=== PATIENT | female | born 1990 | race African-American/Black ===

== ENCOUNTER 2019-07-24 15:19 | Emergency (ER) | payer MEDICAID, SELFPAY ==
[2019-07-24 15:28] VITALS: BP 146/89; PULSE 74; RESP 18; TEMP 36.3; O2SAT 100
--- NOTE | 2019-07-24 15:45 | ED.URI ---
HPI - URI/Sore Throat General Chief Complaint: Upper Respiratory Infection Stated Complaint: sore throat Time Seen by Provider: 07/24/19 15:40 Source: patient and RN notes reviewed Mode of arrival: ambulatory Limitations: no limitations History of Present Illness HPI Narrative: Patient presents today with an intermittent sore throat x1 week with loss of voice twice in the last 2 weeks, intermittent subjective fever and intermittent chills. Reports that when she is feeling feverish she has checked her temperature and it has been negative. Denies cough, congestion, rhinorrhea, nausea or vomiting. She has been drinking hot tea and taking ibuprofen occasionally. She currently rates her pain 6/10. Patient was sent home from work today and was told she needed to come in for evaluation. Patient works at [employer]. MD elicited complaint: sore throat Related Data Home Medications Medication Instructions Recorded Confirmed No Home Medications 07/24/19 07/24/19 Allergies Allergy/AdvReac Type Severity Reaction Status Date / Time No Known Allergies Allergy Verified 07/24/19 15:35 Review of Systems Review of Systems: Narrative: CONSTITUTIONAL: Denies body aches, or sweats.+ Chills, subjective fever EYES: Denies visual changes, redness, or discharge. ENT: Denies rhinorrhea, congestion, or otalgia.+ Sore throat CARDIOVASCULAR: Denies chest pain, palpitations, or edema. RESPIRATORY: Denies cough or dyspnea. GASTROINTESTINAL: Denies abdominal pain, nausea, vomiting, or diarrhea. GENITOURINARY: Denies dysuria or hematuria. SKIN: Denies rash, itching, or wounds. MUSCULOSKELETAL: Denies back pain, joint pain, or myalgia. NEUROLOGIC: Denies headache, numbness, tingling, or weakness. PSYCH: Denies depression or anxiety. PMFSH Comments At time of signature, I have reviewed and agree with nursing past medical, surgical, social and family history unless otherwise noted. Please see nursing chart for further information. There is no relevant family history pertinent to the presenting complaint Exam Narrative: Exam Narrative: GENERAL: Well-appearing, well-nourished, and in no acute distress. HEAD: Normocephalic, atraumatic. EYES: EOMI. No redness or drainage. Conjunctivae normal. ENT: Mucous membranes pink and moist. Nares clear. No rhinorrhea. TMs normal bilaterally. Throat normal. Uvula midline. NECK: Normal AROM. Supple. No lymphadenopathy. CHEST: No respiratory distress. Clear to auscultation. HEART: Regular rate and rhythm. No murmur appreciated. Normal peripheral pulses. EXTREMITIES: Normal range of motion. No edema. SKIN: Warm, dry, no rash. NEURO: No focal deficits. Alert and oriented x3. Gait steady. PSYCH: Normal affect. No signs of depression or anxiety. Course Vital Signs Vital signs: Vital Signs Temperature 97.4 F L 07/24/19 15:28 Pulse Rate 74 07/24/19 15:28 Respiratory Rate 18 07/24/19 15:28 Blood Pressure 146/89 H 07/24/19 15:28 Pulse Oximetry 100 07/24/19 15:28 Temperature 97.4 F L 07/24/19 15:28 Pulse Rate 74 07/24/19 15:28 Respiratory Rate 18 07/24/19 15:28 Blood Pressure 146/89 H 07/24/19 15:28 Pulse Oximetry 100 07/24/19 15:28 Reviewed. Pt has been instructed to follow up with her PCP regarding her elevated blood pressure today. MDM - URI/Sore Throat Differential Diagnosis Differential diagnosis: Likely upper respiratory infection, otitis media, viral infection, pharyngitis and other (Strep throat) Lab Data Attestation: I reviewed the patient's lab results. Labs: Strep Screen Presumptive Negative *(Reference Range: Negative)* Critical Care Time Critical Care Time Critical Care Time: No Discharge Plan Discharge Clinical Impression: Acute sore throat Patient Disposition: Home, Self-Care Condition: Stable Instructions: Pharyngitis (ED) Additional Instructions: Your rapid strep swab was negative today at [facility]
== END 2019-07-24 15:55 | disposition home or self-care (01) ==
PROVIDERS: Emergency Provider Nurse Practitioner
DX: J02.9 Acute pharyngitis, unspecified (principal)
CPT/HCPCS: 87081; 87880; 99213; G0463

== ENCOUNTER 2019-10-09 17:23 | Emergency (ER) | payer BC, SELFPAY ==
[2019-10-09 18:11] VITALS: BP 124/77; PULSE 78; RESP 18; TEMP 36.7; O2SAT 99
--- NOTE | 2019-10-09 18:30 | ED.FEMALEGU ---
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 Stated complaint: VAG BLEEDING Time Seen by Provider: 10/09/19 18:04 Source: patient Mode of arrival: ambulatory Limitations: no limitations History of Present Illness HPI Narrative: Patient is a 29-year-old female who presents to emergency department for evaluation of vaginal discharge noting light blood-tinged discharge patient denies any fever chills nausea vomiting or similar occurrence in the past patient notes she would like to be tested and treated for STDs patient states she does not have a current oil gauger patient on arrival to emergency department notes some mild discomfort and cramping in the suprapubic region. Related Data Home Medications Medication Instructions Recorded Confirmed No Home Medications 07/24/19 07/24/19 Allergies Allergy/AdvReac Type Severity Reaction Status Date / Time No Known Allergies Allergy Verified 10/09/19 18:16 Review of Systems Review of Systems: All systems reviewed & are unremarkable except as noted in HPI and below PMFSH Social History Social History (Updated 10/09/19 @ 18:31 by Benito Sanchez PA-C) Smoking status: Never smoker Gender identity (if verbalized by the patient): Female Exam Narrative: Exam Narrative: GENERAL: Well-appearing, well-nourished, and in no acute distress. HEAD: Normocephalic, atraumatic. EYES: PERRLA and EOMI. ENT: Nares clear, no rhinorrhea or epistaxis. Mucous membranes moist. CHEST: Clear to auscultation. No respiratory distress. No wheezes rales or rhonchi HEART: Regular rate and rhythm. No murmur heard. Normal peripheral pulses. ABDOMEN: Soft, nontender, nondistended FEMALE GENITOURINARY: White blood-tinged discharge in the vaginal vault otherwise unremarkable exam SKIN: Warm, dry, no rash. NEURO: No focal deficits. Alert and oriented x3. Cranial nerves II through XII grossly intact PSYCH: Normal mood and affect. Course Course Emergency Course: Patient in the room afebrile nontoxic-appearing no distress felt appropriate for outpatient reevaluation Vital Signs Vital signs: Vital Signs Temperature 98.1 F 10/09/19 18:11 Pulse Rate 78 10/09/19 18:11 Respiratory Rate 18 10/09/19 18:11 Blood Pressure 124/77 10/09/19 18:11 Pulse Oximetry 99 10/09/19 18:11 Temperature 98.1 F 10/09/19 18:11 Pulse Rate 78 10/09/19 18:11 Respiratory Rate 18 10/09/19 18:11 Blood Pressure 124/77 10/09/19 18:11 Pulse Oximetry 99 10/09/19 18:11 MDM - Female Genitourinary MDM Narrative Medical decision making narrative: Patient in the room at this time aware of case findings treatment plan and diagnosis was tested and treated for STDs as requested no high risk changes in the blood work provided with gynecological follow-up also agreeing to return if symptoms worsen and was provided with reasons to return Lab Data Labs: Lab Results 10/09/19 10/09/19 Range/Units 18:44 19:29 Urine Color Colorless (Yellow) Urine Appearance Clear (Clear) Urine pH 7.0 (5.0-9.0) Ur Specific [place] 1.005 (1.001-1.035) Urine Protein Negative (Negative) mg/dL Urine Glucose (UA) Negative (Negative) mg/dL Urine Ketones Negative (Negative) mg/dL Ur Blood (Man) 2+ H (Negative) Urine Nitrate Negative (Negative) Urine Bilirubin Negative (Negative) Urine Urobilinogen Negative (<2.0) mg/dL Leukocyte Esterase Rfl Negative (Negative) ARSEN/UL Urine WBC 0-3 /hpf Ur Squamous Epith Cells Occasional (Few) /hpf Urine Bacteria Trace /hpf C.trachomatis RNA (TMA) Pending N.gonorrhoeae RNA (TMA) Pending UCG Bedside Result Negative Reference Range: Negative Discharge Plan Discharge Clinical Impression: Abnormal vaginal bleeding Patient Disposition: Home, Self-Care Condition: Stable Instructions: Antibiotic Form, Dysfunctional Uterine Bleeding (ED) Additional Instructions:
[2019-10-09] MEDS: AZITHROMYCIN 250 MG TABLET 1000 MG PO (18:52)
[2019-10-09] MEDS: cefTRIAXone 250 MG VIAL IM (18:53)
[2019-10-09] MEDS: metroNIDAZOLE 250 MG TABLET 2000 MG PO (18:53)
[2019-10-09] MEDS: LIDOCAINE HCL 1% LOCAL INJ 20 ML VIAL (18:54)
[2019-10-09 19:40] LABS: Add Urine Microscopic? YES; Appearance Urine Clear (Clear); Bacteria Urine Trace /hpf; Bilirubin Urine Negative (Negative); Blood Urine 2+ (Negative); Color Urine Colorless (Yellow); Glucose Urine UA Negative (Negative); Ketones Urine Negative (Negative); Leukocyte Esterase Ur Negative LEU/UL (Negative); Nitrate Urine Negative (Negative); Protein Urine Negative (Negative); Specific Grav Ur 1.005 (1.001-1.035); Squamous Epithelial Cell Urine Occasional /hpf (Few); Urobilinogen Urine Negative mg/dL (<2.0); WBC Urine 0-3 /hpf
== END 2019-10-09 19:59 | disposition home or self-care (01) ==
PROVIDERS: Emergency Medicine Emergency Medical Services; Emergency Provider Emergency Medicine
DX: N93.9 Abnormal uterine and vaginal bleeding, unspecified (principal)
CPT/HCPCS: 81001; 81025; 87070; 87491; 87591; 96372; 99284; A9270; J0696

== ENCOUNTER 2019-10-11 07:40 | Emergency (ER) | payer BC, SELFPAY ==
[2019-10-11] VITALS (7 sets, daily range): BP systolic 125–149; BP diastolic 66–97; PULSE 59–85; RESP 14–25; TEMP 36.4; O2SAT 98–100
--- NOTE | ~2019-10-11 | CT_ITS ---
EXAMINATION: CTA chest PE protocol DATE: 10/11/2019 09:29 INDICATION: Shortness of breath. Left-sided chest and back pain. Pain with breathing. TECHNIQUE: Computed tomography (CT) pulmonary angiogram of the chest was performed with 100 mL Omnipa que-350 intravenous contrast. Additional 3D reconstructions utilizing coronal maximum intensity proje ction (MIP) were performed. Automated exposure control and iterative reconstruction technique were em ployed. The dose-length product was 624.09 mGy-cm. COMPARISON: None FINDINGS: Good but suboptimal contrast opacification of the pulmonary arteries with the peak of the contrast pancho miguelangel in the pulmonary veins. There is mild streak artifact from dense contrast in the superior vena ca va and right atrium. No significant respiratory motion artifact yielding diagnostic quality study whi ch demonstrates no pulmonary embolism. No pneumonia, pulmonary edema or other pulmonary infiltrates. No pleural effusion or pneumothorax. Heart size is normal. No pericardial effusion. Thoracic aorta is normal in caliber with no dissection. No pathologically enlarged thoracic lymphadenopathy. Visualize d upper abdomen and bones are unremarkable. IMPRESSION: 1. No pulmonary embolism or other acute cardiopulmonary disease. Reviewed, dictated and finalized at location A.
--- NOTE | ~2019-10-11 | XR_ITS ---
EXAMINATION: XR chest 2V DATE: 10/11/2019 08:35 INDICATION: Shortness of breath. Upper back pain TECHNIQUE: PA and lateral views of the chest were obtained. COMPARISON: None FINDINGS: The lungs are clear with no focal airspace opacities, pulmonary edema, pleural effusion or pneumothor ax. The cardiomediastinal silhouette is normal. Visualized bones and soft tissues are unremarkable. IMPRESSION: 1. Normal chest radiograph. Reviewed, dictated and finalized at location A. IMPRESSION: 1. Normal chest radiograph.
--- NOTE | 2019-10-11 08:05 | ECG_ITS ---
Measurements Intervals [place] Rate: 71 P: 35 MN: 203 QRS: 67 QRSD: 97 T: 46 QT: 388 QTc: 423 Interpretive Statements SINUS RHYTHM BASELINE WANDER- I, II, AVR, V4-V6 BORDERLINE ECG Electronically Signed On 10-11-2019 8:13:27 CDT by Abilio Bar D.O.
[2019-10-11] MEDS: ASPIRIN 81 MG CHEWABLE TABLET 324 MG PO (08:16)
[2019-10-11 08:18] LABS: Basophils Percent Auto 0.3 % (0.2-1.2); Eosinophils Absolute Auto 0.3 K/mm3 (0-0.3); Eosinophils Percent Auto 4.1 % (0-4.4); Hematocrit 35.5 % (37.0-47.0); Hemoglobin 12.1 g/dL (12.0-15.0); Immature Granulocyte Absolute 0.01 K/mm3 (0.00-0.031); Immature Granulocyte Percent A 0.2 % (0-0.5); Lymphocytes Absolute Auto 2.46 K/mm3 (0.9-3.2); Mean Corpuscular HGB Conc 34.1 g/dl (32-36); Mean Corpuscular Hemoglobin 24.6 pg (26-34); Mean Corpuscular Volume 72.3 fl (80-100); Mean Platelet Volume 12.5 fl (7.4-10.4); Monocytes Absolute Auto 0.6 K/mm3 (0.1-0.6); Neutrophils Absolute Auto 3.3 K/mm3 (1.3-6.7); Neutrophils Percent Auto 49.4 % (45.5-73.1); Platelet Count Result 235 k/mm3 (150-375); Red Blood Count 4.91 M/mm3 (4.2-5.4); Red Cell Distribution Width 15.9 % (11.5-14.5); White Blood Count 6.6 K/mm3 (4.5-10.0)
[2019-10-11 08:29] LABS: Prothrombin Time 12.9 Seconds (11.1-14.7)
[2019-10-11 08:30] LABS: Partial Thromboplastin Time 32.6 SECONDS (22.3-36.8)
[2019-10-11 08:32] LABS: Blood Urea Nitrogen 10 mg/dL (7-17); Carbon Dioxide 24 mmol/L (22-30); Chloride 106 mmol/L (98-107); Estimated CRCL calculation 99 ml/min; Estimated Glomerular Filt Rate > 60; Glucose 94 mg/dL (65-105); Potassium 3.8 mmol/L (3.4-5.0); Sodium 137 mmol/L (137-145)
[2019-10-11 08:44] LABS: Troponin I < 0.012 ng/mL (0.000-0.034)
--- NOTE | 2019-10-11 08:55 | ED.GENADULT ---
HPI - General Adult General Chief complaint: Back Pain/Injury Stated complaint: back pain/pain with mvt/breathing Time Seen by Provider: 10/11/19 08:37 History of Present Illness HPI narrative: Patient presents for upper left back pain. Hurts worse if she takes a deep breath, but still hurts at rest. She was here 2 days ago for abnormal uterine bleeding. The bleeding has since improved. She says the pain is 6 out of 10. She has no chronic medical conditions. She does not smoke drink or do drugs. Related Data Allergies Allergy/AdvReac Type Severity Reaction Status Date / Time No Known Allergies Allergy Verified 10/11/19 08:16 Review of Systems Review of Systems: Narrative: CONSTITUTIONAL: Denies fever, chills, or sweats. Overweight, macromastia. EYES: Denies visual changes, redness, or discharge. ENT: Denies rhinorrhea, congestion, sore throat, or otalgia. CARDIOVASCULAR: Denies chest pain, palpitations, or edema. RESPIRATORY: Denies cough or dyspnea. GASTROINTESTINAL: Denies abdominal pain, nausea, vomiting, or diarrhea. GENITOURINARY: Denies dysuria or hematuria. SKIN: Denies rash or itching. MUSCULOSKELETAL: Denies back pain, joint pain, or myalgia. NEUROLOGIC: Denies headache, numbness, or weakness. PSYCHIATRIC: Denies anxiety or depression. [facility] Past Medical History Medical History (Updated 10/11/19 @ 10:11 by Berenice Wooten MD) Dysfunctional uterine bleeding Social History Social History (Updated 10/11/19 @ 08:57 by Berenice Wooten MD) Smoking status: Never smoker Alcohol intake: never Gender identity (if verbalized by the patient): Female Exam Narrative: Exam Narrative: GENERAL: Well-appearing, well-nourished, and in no acute distress. Overweight. Slow to sit up in the bed. HEAD: Normocephalic, atraumatic. EYES: PERRLA and EOMI. ENT: Nares clear, no rhinorrhea or epistaxis. Mucous membranes moist. NECK: Supple. CHEST: Clear to auscultation. No respiratory distress. HEART: Regular rate and rhythm. No murmur heard. Normal peripheral pulses. ABDOMEN: Soft, nontender, nondistended, normal active bowel sounds. EXTREMITIES: Normal range of motion. No edema. SKIN: Warm, dry, no rash. NEURO: No focal deficits. Alert and oriented x3. PSYCH: Flat affect. Course Reevaluation(s) Reevaluation #1: Plan to tell the patient about her normal test on the definition of pleurisy. I told her that I had ordered prescription strength ibuprofen for her. She said she would not be able to work if it hurts her to bend over. I offered her a note to be off work today. Date: 10/11/19 Time: 10:15 Vital Signs Vital signs: Vital Signs Temperature 97.5 F L 10/11/19 07:50 Pulse Rate 82 10/11/19 07:50 Respiratory Rate 16 10/11/19 07:50 Blood Pressure 128/66 10/11/19 07:50 Temperature 97.5 F L 10/11/19 07:50 Pulse Rate 59 L 10/11/19 10:10 Respiratory Rate 14 10/11/19 10:10 Blood Pressure 126/81 10/11/19 10:10 Pulse Oximetry 100 10/11/19 10:10 Medical Decision Making Differential Diagnosis Differential Diagnosis: Although this sounds like his pleurisy she could have a PE will get a CAT scan to rule that out. Medical Records Medical records reviewed: Yes I reviewed the patient's medical records. Vital Signs Vital Signs: Vital Signs Temperature 97.5 F L 10/11/19 07:50 Pulse Rate 82 10/11/19 07:50 Respiratory Rate 16 10/11/19 07:50 Blood Pressure 128/66 10/11/19 07:50 Temperature 97.5 F L 10/11/19 07:50 Pulse Rate 59 L 10/11/19 10:10 Respiratory Rate 14 10/11/19 10:10 Blood Pressure 126/81 10/11/19 10:10 Pulse Oximetry 100 10/11/19 10:10 Lab Data Lab results reviewed: Yes I reviewed the patient's lab results. Result diagrams: 10/11/19 08:11 10/11/19 08:11 Labs: Lab Results 10/11/19 10/11/19 10/11/19 Range/Units 08:10 08:11 08:11 WBC 6.6 (4.5-10.0) K/mm3 RBC 4.91 (4.2-5.4) M/mm3 Hgb 12.1 (12.0-1
[2019-10-11 09:10] LABS: D Dimer 0.61 ug/mL (<0.48)
[2019-10-11] MEDS: IBUPROFEN 600 MG TABLET PO (10:30)
== END 2019-10-11 10:33 | disposition home or self-care (01) ==
PROVIDERS: Emergency Provider Emergency Medicine
DX: R09.1 Pleurisy (principal); R79.89 Other specified abnormal findings of blood chemistry; R94.31 Abnormal electrocardiogram [ECG] [EKG]
CPT/HCPCS: 36415; 71046; 71275; 80048; 81025; 84484; 85025; 85380; 85610; 85730; 93005; 99284; A9270; Q9967

== ENCOUNTER 2020-01-04 12:11 | Outpatient (CLI) | payer OTHER, SELFPAY ==
[2020-01-04 12:39] LABS: Basophils Percent Auto 0.2 % (0.2-1.2); Eosinophils Absolute Auto 0.2 K/mm3 (0-0.3); Hemoglobin 12.4 g/dL (12.0-15.0); Immature Granulocyte Absolute 0.02 K/mm3 (0.00-0.031); Immature Granulocyte Percent A 0.2 % (0-0.5); Immature Reticulocyte Fraction 19.1 % (3.0-15.9); Lymphocytes Absolute Auto 3.48 K/mm3 (0.9-3.2); Lymphocytes Percent Auto 43.3 % (18.3-44.2); Mean Corpuscular HGB Conc 34.4 g/dl (32-36); Mean Corpuscular Hemoglobin 24.4 pg (26-34); Mean Corpuscular Volume 70.7 fl (80-100); Mean Platelet Volume 12.6 fl (7.4-10.4); Monocytes Absolute Auto 0.7 K/mm3 (0.1-0.6); Monocytes Percent Auto 8.3 % (2.6-8.5); Neutrophils Absolute Auto 3.6 K/mm3 (1.3-6.7); Platelet Count Result 267 k/mm3 (150-375); Red Blood Count 5.09 M/mm3 (4.2-5.4); Red Cell Distribution Width 16.4 % (11.5-14.5); Reticulocyte Hemoglobin Conten 31.4 pg (28.2-35.7); Reticulocytes Absolute 0.07 B/L (32.2-175.7)
[2020-01-04 12:51] LABS: Alanine Aminotransferase 18 U/L (4-35); Albumin Level 4.4 g/dL (3.5-5.1); Alkaline Phosphatase 36 U/L (38-126); Anion Gap 7 mmol/L (8-16); Aspartate Amino Transferase 26 U/L (14-36); Bilirubin,Total 0.7 mg/dL (0.2-1.3); Blood Urea Nitrogen 11 mg/dL (7-17); Calcium 9.2 mg/dL (8.4-10.2); Carbon Dioxide 24 mmol/L (22-30); Chloride 106 mmol/L (98-107); Cholesterol 160 mg/dL (0-200); Estimated Glomerular Filt Rate > 60; Glucose 91 mg/dL (65-105); HDL Direct 39 mg/dL; Lactate Dehydrogenase 491 U/L (313-618); Potassium 4.1 mmol/L (3.4-5.0); Sodium 137 mmol/L (137-145); Triglycerides 100 mg/dL (<150)
[2020-01-04 13:02] LABS: LDL Cholesterol Direct 96 mg/dL; Transferrin 318 mg/dL (206-381)
[2020-01-04 13:07] LABS: Creatinine Urine 325.1 mg/dL
[2020-01-04 13:10] LABS: Iron 150 ug/dL (37-170)
[2020-01-04 13:11] LABS: MALB Creatinine Ratio 3.5 mg/g (0-30); Microalbumin Urine Random 11.5 mg/L (0-16.7)
[2020-01-04 13:19] LABS: Percent Iron Saturation 33 % (20-50)
[2020-01-04 13:22] LABS: Total Triiodothyronine (T3) 1.25 NG/ML (0.97-1.69)
[2020-01-04 13:30] LABS: Vitamin D 25 Hydroxy 17.4 ng/mL
[2020-01-04 13:46] LABS: Ferritin 7.38 ng/mL (6.24-137)
[2020-01-04 13:56] LABS: Folic Acid 13.7 ng/mL (2.76->20)
[2020-01-04 22:34] LABS: Free T4 Free Thyroxine 1.12 ng/mL (0.78-2.19)
== END 2020-01-04 12:12 | disposition home or self-care (01) ==
PROVIDERS: PCP Family Medicine; Visit Provider Nurse Practitioner
DX: K21.9 Gastro-esophageal reflux disease without esophagitis (principal); E66.9 Obesity, unspecified; E55.9 Vitamin D deficiency, unspecified; R80.9 Proteinuria, unspecified; Z13.0 Encounter for screening for diseases of the blood and blood-forming organs and certain disorders involving the immune mechanism; Z13.6 Encounter for screening for cardiovascular disorders; Z13.29 Encounter for screening for other suspected endocrine disorder; Z13.220 Encounter for screening for lipoid disorders
CPT/HCPCS: 36415; 80053; 80061; 82043; 82306; 82607; 82728; 82746; 83540; 83550; 83615; 84439; 84443; 84466; 84480; 85025; 85046

== ENCOUNTER 2020-01-22 15:27 | Outpatient (CLI) | payer OTHER, SELFPAY ==
--- NOTE | ~2020-01-22 | US_ITS ---
EXAMINATION: US pelvic complete w TV DATE: 01/22/2020 16:10 INDICATION: Dysmenorrhea Comparison:12/02/2015 TECHNIQUE: Multiple transabdominal and endovaginal sonographic images of the pelvis performed. FINDINGS: The uterus measures 9.4 x 5.8 x 6.2 cm. There are nabothian cysts, largest measure 1.7 cm. The endometrial complex measures 7 mm. The right ovary measures 3 x 2.4 x 2.1 cm and the left ovary is not visualized. There is no free fluid in the pelvis. There are no abnormal masses seen on either side. IMPRESSION: 1. Unremarkable pelvic ultrasound. Reviewed, dictated and finalized at location A.
== END 2020-01-22 15:28 | disposition home or self-care (01) ==
PROVIDERS: PCP Family Medicine; Visit Provider Student in an Organized Health Care Education/Training Program
DX: N94.6 Dysmenorrhea, unspecified (principal)
CPT/HCPCS: 76830; 76856

== ENCOUNTER 2020-06-10 06:38 | Emergency (ER) | payer OTHER, SELFPAY ==
[2020-06-10 06:41] VITALS: BP 145/95; PULSE 99; RESP 18; TEMP 36.1; O2SAT 99
--- NOTE | 2020-06-10 06:55 | PC.NURSE ---
this rn went into room [address] an IV, pt refused at this time.
--- NOTE | 2020-06-10 07:10 | ED.HA ---
HPI - Headache General Chief Complaint: Headache <Orlando Wright DO - Last Filed: 06/10/20 09:55> Stated Complaint: red eye, runny nose <Orlando Wright DO - Last Filed: 06/10/20 09:55> Time Seen by Provider: 06/10/20 07:04 <Orlando Wright DO - Last Filed: 06/10/20 09:55> Source: RN notes reviewed <Orlando Wright DO - Last Filed: 06/10/20 09:55> History of Present Illness HPI Narrative: Patient presents to emergency department from home for headache. Patient states symptoms began 2 days ago. She states that initially began with a runny nose and watering from her right eye. She states her right eye has become mildly red and achy in nature. She states that headache is been ongoing since that time with pain on the right side of the head she denies any fevers or chills vision changes sore throat cough shortness of breath abdominal pain nausea vomiting or any other symptoms. She denies being around anyone with Covid states she took ibuprofen yesterday but denies taking medication today. Denies any other symptoms at this time patient states she does wear glasses occasionally but does not wear contacts denies any trauma or injury to the eye <Orlando Wright DO - Last Filed: 06/10/20 09:55> Related Data Allergies/Adverse Reactions: Allergies Allergy/AdvReac Type Severity Reaction Status Date / Time No Known Allergies Allergy Verified 02/09/20 10:48 <Orlando Wright DO - Last Filed: 06/10/20 09:55> Review of Systems Review of Systems: Narrative: Gen.: Denies fevers or chills Eyes: See HPI ENT: D reports rhinorrhea Respiratory: Denies shortness of breath or cough CV: Denies chest pain or palpitations GI: Denies abdominal pain nausea, emesis or diarrhea denies change Musculoskeletal: Denies back pain or muscle pain Neuro: Denies numbness, tingling, weakness or focal weakness, reports headache Skin: Denies rash Except as documented, all other systems reviewed and negative <DO Morgan Allen Last Filed: 06/10/20 09:55> [facility] Past Medical History Medical History: Medical History ASCUS with positive high risk HPV Dysfunctional uterine bleeding History of chlamydia History of gonorrhea History of herpes simplex infection <Orlando Wright DO - Last Filed: 06/10/20 09:55> Family History Family History: Family History Father Diabetes mellitus Hypertension Grandparent Diabetes mellitus Acute myocardial infarction Mother Hypertension Sibling Hypertension <Orlando Wright DO - Last Filed: 06/10/20 09:55> Social History Social History: Social History Smoking status: Never smoker Alcohol intake: never Gender identity (if verbalized by the patient): Female <Orlando Wright DO - Last Filed: 06/10/20 09:55> Exam Narrative: Exam Narrative: APPEARANCE: No acute distress, nontoxic, resting in bed EYES: EOMI, PERRL, left eye normal appearance of right eye has no swelling of the upper or lower eyelids, mild conjunctival erythema the right eye with clear watering full range of motion of the eye without pain no foreign body seen HEENT: Normocephalic, atraumatic, TMs clear bilaterally, bilateral nares with rhinorrhea mucosa moist RESPIRATORY: No respiratory distress Clear to auscultation bilaterally with no rhonchi wheezing or rales. CARDIOVASCULAR: Regular rate and rhythm without murmurs rubs or gallops. ABDOMINAL: Soft, nontender, nondistended, no rebound or guarding MUSCULOSKELETAl: Moves all extremities. No clubbing, cyanosis or edema. NEURO: Awake and alert. Following commands, speech normal, no focal deficits SKIN:: Warm, dry. No rashes lesions or abrasions PSYCHIATRIC: Normal affect/mood, <Orlando Wright DO - Last Filed: 06/10/20 09:55> Exam Narrative
[2020-06-10] MEDS: IBUPROFEN 600 MG TABLET PO (07:31)
== END 2020-06-10 10:08 | disposition home or self-care (01) ==
PROVIDERS: Emergency Provider Emergency Medicine; PCP Family Medicine
DX: S05.01XA Injury of conjunctiva and corneal abrasion without foreign body, right eye, initial encounter (principal); X58.XXXA Exposure to other specified factors, initial encounter
CPT/HCPCS: 99283; A9270

== ENCOUNTER 2020-10-12 01:24 | Emergency (ER) | payer OTHER, SELFPAY ==
[2020-10-12] VITALS (14 sets, daily range): BP systolic 97–154; BP diastolic 60–104; PULSE 66–91; RESP 16–18; TEMP 36.3; O2SAT 99–100
--- NOTE | ~2020-10-12 | CT_ITS ---
EXAMINATION: CT abdomen pelvis w con EXAM DATE: 10/12/2020 03:57 INDICATION: Epigastric pain. TECHNIQUE: Spiral CT of the abdomen and pelvis was performed following intravenous injection of 100 m L Omnipaque 350. Axial, coronal and sagittal images of the abdomen and pelvis were reviewed. The do se-length product (DLP) for this examination was 1053.12 mGy-cm. The exposure was tailored according to patient size (auto mA exposure control), and iterative reconstruction (ASIR) was used as addition al dose reduction technique. Comparison is made to prior examination from 12/30/2014. FINDINGS: The liver, spleen, adrenal glands and pancreas are unremarkable. Gallbladder is unremarkab le. No biliary obstruction. Portal and splenic veins are patent. Kidneys enhance symmetrically. T here is no hydronephrosis. The uterus is unremarkable. Bladder wall thickening, could be acute or chronic cystitis. There is no retroperitoneal or pelvic lymphadenopathy. Small to moderate-sized umbilical [place] fat containing hernia. The appendix is normal. The stomach and small bowel are unremarkable. There is expected amount of c olonic stool. No free intraperitoneal gas. The heart is normal in size. There are no pericardial or pleural effusions. The lung bases are unremarkable. Left-sided sacroiliitis. IMPRESSION: 1. Bladder wall thickening, could be acute or chronic cystitis, correlate with urinalysis. 2. Chronic left-sided sacroiliitis. 3. Umbilical hernia. Reviewed, dictated and finalized at location A.
--- NOTE | 2020-10-12 01:26 | PC.NURSE ---
ambulatory to ED c/o painful inspiration. also c/o bright red blood in stool. denies cough or other respiratory symptoms, but states that it hurts to take a deep breath in so it's making her FEEL short of breath. able to speak in full sentences. appears uncomfortable.
--- NOTE | 2020-10-12 01:40 | ECG_ITS ---
SINUS RHYTHM NORMAL ECG Electronically Signed On 10-15-2020 11:38:43 CDT by Abilio BASHIR
[2020-10-12] MEDS: SODIUM CHLORIDE 0.9% IV 1,000 ML 999 ML IV CONT (02:35)
[2020-10-12] MEDS: ONDANSETRON INJ 4 MG/2 ML VIAL IV PUSH (02:36)
[2020-10-12] MEDS: MORPHINE SULFATE (*CRX) 4 MG/ML INJ IV PUSH (02:36)
[2020-10-12 02:39] LABS: Basophils Percent Auto 0.2 % (0.2-1.2); Eosinophils Absolute Auto 0.3 K/mm3 (0-0.3); Eosinophils Percent Auto 2.3 % (0-4.4); Hematocrit 35.6 % (37.0-47.0); Hemoglobin 12.1 g/dL (12.0-15.0); Immature Granulocyte Absolute 0.03 K/mm3 (0.00-0.031); Immature Granulocyte Percent A 0.3 % (0-0.5); Lymphocytes Absolute Auto 3.98 K/mm3 (0.9-3.2); Mean Corpuscular Hemoglobin 25.5 pg (26-34); Mean Corpuscular Volume 74.9 fl (80-100); Monocytes Percent Auto 9.1 % (2.6-8.5); Neutrophils Absolute Auto 5.5 K/mm3 (1.3-6.7); Neutrophils Percent Auto 51.1 % (45.5-73.1); Platelet Count Result 232 k/mm3 (150-375); Red Blood Count 4.75 M/mm3 (4.2-5.4); Red Cell Distribution Width 15.6 % (11.5-14.5); White Blood Count 10.8 K/mm3 (4.5-10.0)
[2020-10-12 02:52] LABS: Alanine Aminotransferase 15 U/L (4-35); Albumin Level 4.2 g/dL (3.5-5.1); Alkaline Phosphatase 43 U/L (38-126); Anion Gap 9 mmol/L (8-16); Aspartate Amino Transferase 22 U/L (14-36); Bilirubin,Total 0.2 mg/dL (0.2-1.3); Blood Urea Nitrogen 9 mg/dL (7-17); Calcium 9.7 mg/dL (8.4-10.2); Carbon Dioxide 25 mmol/L (22-30); Chloride 107 mmol/L (98-107); Estimated CRCL calculation 113 ml/min; Estimated Glomerular Filt Rate > 60; Glucose 90 mg/dL (65-105); Lipase 72 U/L (23-300); Potassium 4.2 mmol/L (3.4-5.0); Sodium 141 mmol/L (137-145)
[2020-10-12 03:32] LABS: Lactic Acid Reflex 0.9 mmol/L (0.7-2.1)
--- NOTE | 2020-10-12 03:46 | PC.NURSE ---
Pt to CT via stretcher after negative preg test and urine sent.
[2020-10-12 03:51] LABS: Add Urine Microscopic? YES; Appearance Urine Cloudy (Clear); Bacteria Urine 1+ /hpf; Bilirubin Urine Negative (Negative); Blood Urine Negative (Negative); Color Urine Yellow (Yellow); Glucose Urine UA Negative (Negative); Ketones Urine Negative (Negative); Leukocyte Esterase Ur Trace LEU/UL (Negative); Mucus Urine Rare /lpf; Nitrate Urine Negative (Negative); Protein Urine Negative (Negative); RBC Urine 0-2 /hpf (0-2); Squamous Epithelial Cell Urine Many /hpf (Few); Urobilinogen Urine Negative mg/dL (<2.0); WBC Urine 0-3 /hpf
--- NOTE | 2020-10-12 03:57 | ED.GENADULT ---
HPI - General Adult General Chief complaint: Shortness of Breath/Dyspnea Stated complaint: shortness of breath Time Seen by Provider: 10/12/20 02:12 History of Present Illness HPI narrative: Patient is a 30-year-old female presents emergency department with chief complaint of epigastric pain. Patient states the pain started in the epigastric region and radiates to her back patient also reports that she had some blood in her stool earlier today states it was mixed in with the stool denies diarrhea denies blood on the toilet paper. Patient states that she ate a hot pocket and on legible today reports has had no prior abdominal surgeries reports that she has noticed that her upper abdomen is a little bit more distended than normal. Related Data Allergies Allergy/AdvReac Type Severity Reaction Status Date / Time No Known Allergies Allergy Verified 10/12/20 01:37 Review of Systems Review of Systems: Narrative: A 10 system review of systems was completed on the patient and is negative except for what is stated in the HPI. Nursing and ancillary documentation was reviewed. PMFSH Past Medical History Medical History ASCUS with positive high risk HPV Dysfunctional uterine bleeding History of chlamydia History of gonorrhea History of herpes simplex infection Family History Family History Father Diabetes mellitus Hypertension Grandparent Diabetes mellitus Acute myocardial infarction Mother Hypertension Sibling Hypertension Social History Social History Smoking status: Never smoker Alcohol intake: never Gender identity (if verbalized by the patient): Female Exam Narrative: Exam Narrative: GENERAL: Well-appearing, well-nourished, and in no acute distress. HEAD: Normocephalic, atraumatic. EYES: PERRLA and EOMI. ENT: Nares clear, no rhinorrhea or epistaxis. Mucous membranes moist. NECK: Supple. CHEST: Clear to auscultation. No respiratory distress. HEART: Regular rate and rhythm. No murmur heard. Normal peripheral pulses. ABDOMEN: Soft, tender to palpation in the epigastric region, nondistended, normal active bowel sounds. EXTREMITIES: Normal range of motion. No edema. SKIN: Warm, dry, no rash. NEURO: No focal deficits. Alert and oriented x3. PSYCH: Normal mood and affect. Course Vital Signs Vital signs: Vital Signs Temperature 36.3 C L 10/12/20 01:28 Pulse Rate 88 10/12/20 01:28 Respiratory Rate 16 10/12/20 01:28 Blood Pressure 148/94 H 10/12/20 01:28 Pulse Oximetry 99 10/12/20 01:28 Temperature 36.3 C L 10/12/20 01:28 Pulse Rate 66 10/12/20 05:31 Respiratory Rate 18 10/12/20 02:01 Blood Pressure 118/79 10/12/20 05:31 Pulse Oximetry 100 10/12/20 05:31 Medical Decision Making Vital Signs Vital Signs: Vital Signs Temperature 36.3 C L 10/12/20 01:28 Pulse Rate 88 10/12/20 01:28 Respiratory Rate 16 10/12/20 01:28 Blood Pressure 148/94 H 10/12/20 01:28 Pulse Oximetry 99 10/12/20 01:28 Temperature 36.3 C L 10/12/20 01:28 Pulse Rate 66 10/12/20 05:31 Respiratory Rate 18 10/12/20 02:01 Blood Pressure 118/79 10/12/20 05:31 Pulse Oximetry 100 10/12/20 05:31 Lab Data Result diagrams: 10/12/20 02:32 10/12/20 02:32 Labs: Lab Results 10/12/20 10/12/20 10/12/20 Range/Units 02:32 02:32 03:12 WBC 10.8 H (4.5-10.0) K/mm3 RBC 4.75 (4.2-5.4) M/mm3 Hgb 12.1 (12.0-15.0) g/dL Hct 35.6 L (37.0-47.0) % MCV 74.9 L (80-100) fl MCH 25.5 L (26-34) pg MCHC 34.0 (32-36) g/dl RDW 15.6 H (11.5-14.5) % Plt Count 232 (150-375) k/mm3 MPV 13.0 H (7.4-10.4) fl Immature Gran % (Auto) 0.3 (0-0.5) % Neut % (Auto) 51.1 (45.5-73.1) % Lymph % (Auto) 37.0 (18.3-44.2) % [place]
--- NOTE | 2020-10-12 04:23 | PC.NURSE ---
Pt has called out twice requesting further pain medications for chest/abd pain. Dr. Laguerre made aware.
[2020-10-12] MEDS: KETOROLAC 30 MG/ML VIAL (*BKC) IV PUSH (04:44)
--- NOTE | 2020-10-12 05:46 | PC.NURSE ---
Continue to await CT results. Pt states pain has decreased.
== END 2020-10-12 06:26 | disposition home or self-care (01) ==
PROVIDERS: Emergency Provider Emergency Medicine; PCP Family Medicine
DX: N83.01 Follicular cyst of right ovary (principal); N30.00 Acute cystitis without hematuria; R10.84 Generalized abdominal pain
CPT/HCPCS: 36415; 74177; 80053; 81001; 81025; 83605; 83690; 85025; 93005; 96361; 96374; 96375; 99284; J1885; J2270; J2405; J7030; Q9967

== ENCOUNTER → 2020-12-03 02:28 | Outpatient (CLI) | payer OTHER, SELFPAY ==
[2020-12-03 18:17] LABS: SARS-CoV-2 RNA PCR Negative
== END ==
PROVIDERS: PCP Family Medicine; Visit Provider Internal Medicine Gastroenterology
DX: Z01.812 Encounter for preprocedural laboratory examination (principal); Z20.822 Contact with and (suspected) exposure to COVID-19
CPT/HCPCS: C9803; U0003; U0005

== ENCOUNTER 2020-12-06 02:22 | Day surgery (SDC) | payer OTHER, SELFPAY ==
[2020-11-26 13:23] VITALS: BMI 39.0
--- NOTE | 2020-12-06 13:02 | WPDANESEPPF ---
Anes - Initial Pre Proc Eval Procedure: Operation Date: 12/06/20 13:30 Proposed Procedures p Esophagogastroduodenoscopy & Colonoscopy - Sagar Camacho MD Date/Time: 12/06/20 13:02 Surgeon: Sagar Camacho MD Pre Op Diagnosis: melena, epigastric pain Patient Data Age: 30 Gender: F Height: 1.6 m Weight: 100 kg Allergies Allergy/AdvReac Type Severity Reaction Status Date / Time No Known Allergies Allergy Verified 12/06/20 13:02 Home Medications Medication Instructions Recorded Confirmed Type No Home Medications 12/06/20 12/06/20 History Patient hx anesthesia problems: none Family hx anesthesia problems: none PMFSH Past Medical History Medical History (Updated 12/06/20 @ 13:04 by Hong Henderson MD) ASCUS with positive high risk HPV Blood in stool, justino Chronic GERD Dysfunctional uterine bleeding Epigastric pain History of acute gastritis History of chlamydia History of gonorrhea History of herpes simplex infection History of ovarian cyst History of UTI Obesity Family History Family History Father Diabetes mellitus Hypertension Grandparent Diabetes mellitus Acute myocardial infarction Mother Hypertension Sibling Hypertension Social History Social History (Updated 11/05/20 @ 09:24 by Shonda Pereira MA) Smoking status: Never smoker Alcohol intake: never Substance use: never Living arrangements: with family Gender identity (if verbalized by the patient): Female Spiritual care concerns: No Agree to blood products: Yes Anes - Eval Final PreProcedure Day of Procedure 12/06/20 13:02 Patient weight: obese Heart: regular rate and rhythm Lungs: clear to auscultation and normal air movement Airway: Mallampati scale class II Neurological: alert and oriented Last oral intake: >/= 8 hours ASA classification: II Emergent: no Anesthetic plan: proceed Anesthesia type and monitoring: general GIVS Informed Consent: The patient's anesthetic plan and its attendant risks and benefits were discussed with the patient/family/POA. Questions were solicited and answers provided to the satisfaction of the patient/family/POA.
[2020-12-06 13:03] VITALS: BP 130/97; PULSE 66; RESP 16; TEMP 36.1; O2SAT 100
[2020-12-06] MEDS: LACTATED RINGERS 1,000 ML 150 ML IV CONT (13:25)
--- NOTE | 2020-12-06 13:40 | WPDHPUPDATE1 ---
History and Physical Update Update Date/Time: 12/06/20 13:40 History and Physical has been reviewed, including an updated exam of the patient. There are NO changes in the patient's condition. Risks, benefits, and alternatives have been discussed and questions answered. Patient agrees to proceed with procedure.
[2020-12-06 14:08] VITALS: BP 106/69; PULSE 78; RESP 19; O2SAT 100
[2020-12-06 14:18] VITALS: BP 126/87; PULSE 82; RESP 20; O2SAT 100
[2020-12-06 14:28] VITALS: BP 133/95; PULSE 83; RESP 15; O2SAT 100
== END 2020-12-06 14:40 | disposition home or self-care (01) ==
PROVIDERS: PCP Family Medicine; Visit Provider Internal Medicine Gastroenterology
PROC: 0DJ08ZZ Inspection of Upper Intestinal Tract, Via Natural or Artificial Opening Endoscopic (ICD-10-PCS; CPT 43235; principal; 2020-12-06 13:30)
DX: K92.1 Melena (principal); K64.8 Other hemorrhoids; R10.13 Epigastric pain; R11.0 Nausea; K21.9 Gastro-esophageal reflux disease without esophagitis; E66.9 Obesity, unspecified; Z68.39 Body mass index [BMI] 39.0-39.9, adult
CPT/HCPCS: 45378; 43239; 88305; J2704; J7120

== ENCOUNTER → 2021-05-16 01:03 | Outpatient (CLI) | payer OTHER, SELFPAY ==
[2021-05-17 18:18] LABS: SARS-CoV-2 RNA PCR Positive
== END ==
PROVIDERS: PCP Family Medicine; Visit Provider Family Medicine
DX: U07.1 COVID-19 (principal)
CPT/HCPCS: C9803; U0003; U0005

== ENCOUNTER 2022-04-14 15:33 | Outpatient (CLI) | payer OTHER, SELFPAY ==
--- NOTE | ~2022-04-14 | US_ITS ---
EXAMINATION: US pelvic complete w TV DATE: 04/14/2022 16:18 INDICATION: IUD placement . Irregular bleeding. TECHNIQUE: Multiple transabdominal and endovaginal sonographic images of the pelvis were obtained. COMPARISON: 01/22/2020. FINDINGS: Uterus: 9.5 x 5.6 x 5.9 cm. Appropriately positioned IUD in the endometrial canal. Endometrial comple x measures 6 mm. Right Ovary: 2.7 x 2.4 x 3.1 cm. Vascular flow is present. Left Ovary: 2.2 x 1.5 x 2.4 cm. Vascular flow is present. There is no free fluid in the pelvis. IMPRESSION: IUD, in good position. Otherwise normal pelvic sonogram findings. Reviewed, dictated and finalized at location K. T INTERN
== END 2022-04-14 15:34 | disposition home or self-care (01) ==
PROVIDERS: PCP Family Medicine; Visit Provider Student in an Organized Health Care Education/Training Program
DX: Z30.431 Encounter for routine checking of intrauterine contraceptive device (principal)
CPT/HCPCS: 76830; 76856

== ENCOUNTER 2022-09-17 13:36 | Outpatient (CLI) | payer OTHER, SELFPAY ==
[2022-09-17 15:10] LABS: Hemoglobin 13.1 g/dL (12.0-15.0); Mean Corpuscular HGB Conc 34.5 g/dl (32-36); Mean Corpuscular Hemoglobin 27.2 pg (26-34); Mean Corpuscular Volume 78.8 fl (80-100); Mean Platelet Volume 12.7 fl (7.4-10.4); Platelet Count Result 258 k/mm3 (150-375); Red Blood Count 4.82 M/mm3 (4.2-5.4); Red Cell Distribution Width 13.8 % (11.5-14.5); White Blood Count 5.9 K/mm3 (4.5-10.0)
[2022-09-17 15:53] LABS: Thyroid Stimulating Hormone 0.253 uIU/mL (0.465-4.680)
[2022-09-17 17:32] LABS: Iron 97 ug/dL (37-170)
[2022-09-17 17:42] LABS: Percent Iron Saturation 25 % (20-50)
[2022-09-17 17:49] LABS: Free T4 Free Thyroxine 1.24 ng/mL (0.78-2.19)
== END 2022-09-17 13:37 | disposition home or self-care (01) ==
PROVIDERS: PCP Family Medicine; Visit Provider Registered Nurse
DX: E04.9 Nontoxic goiter, unspecified (principal); N94.6 Dysmenorrhea, unspecified
CPT/HCPCS: 36415; 83540; 83550; 84439; 84443; 85027

== ENCOUNTER 2022-09-21 15:20 | Outpatient (CLI) | payer OTHER, SELFPAY ==
--- NOTE | ~2022-09-21 | US_ITS ---
EXAMINATION: US thyroid DATE: 09/21/2022 15:58 INDICATION: Nontoxic goiter TECHNIQUE: Multiple ultrasound images of the thyroid were obtained. COMPARISON: None. FINDINGS: The right thyroid lobe measures 4.2 x 1.4 x 1.4 cm. The left thyroid lobe measures 4.5 x 1.6 x 2.0 c m. The isthmus measures 0.4 cm. There is normal echotexture and echogenicity throughout the thyroid g land. No discrete nodules identified. Normal vascular flow is present. IMPRESSION: Normal thyroid ultrasound findings. Reviewed, dictated and finalized at location K.
== END 2022-09-21 15:21 | disposition home or self-care (01) ==
PROVIDERS: PCP Family Medicine; Visit Provider Registered Nurse
DX: E04.9 Nontoxic goiter, unspecified (principal)
CPT/HCPCS: 76536

== ENCOUNTER 2023-01-19 09:18 | Outpatient (CLI) | payer OTHER, SELFPAY ==
[2023-01-24 06:57] LABS: FSH 7.3 mIU/mL (***); LH 1.7 mIU/mL (***); Progesterone 0.3 ng/mL (***)
[2023-01-26 02:42] LABS: Estradiol, Ultrasensitive 24 pg/mL
== END 2023-01-19 09:19 | disposition home or self-care (01) ==
LOC: ANHSURGERY 09:21
PROVIDERS: PCP Family Medicine; Visit Provider Obstetrics & Gynecology
DX: N95.1 Menopausal and female climacteric states (principal); N92.1 Excessive and frequent menstruation with irregular cycle
CPT/HCPCS: 36415; 82670; 83001; 83002; 84144; 86850; 86900; 86901

== ENCOUNTER 2023-01-22 00:16 | Day surgery (SDC) | payer OTHER, SELFPAY ==
[2023-01-14 15:31] VITALS: BMI 44.3
--- NOTE | 2023-01-14 15:35 | PC.NURSE ---
Report to the Outpatient Waiting Room, entrance under the green pavilion located off [facility], at time 11:00 on date 01/22/23. Planned Procedure Time: 1:00. Time changes happen often and if your time is changed the preop area will call you the afternoon before. - You and your visitor will be asked to self-screen and do not enter if you have any COVID symptoms. - A mask is optional within the hospital at this time. Patients may have clear liquids (water, carbonated beverages, clear teas, apple juice) until 3 hours prior to surgery (10:00) with a maximum of 20 ounces. - No food from midnight until time of surgery Take the following medications with a SIP of water the morning of surgery: N/A DO NOT STOP ANY OF YOUR OTHER PRESCRIPTION MEDICATIONS PRIOR TO SURGERY ?EXCEPT THE FOLLOWING Medications to discontinue per physician: N/A Date to take last dose: N/A Please no make-up, nail central african, hairspray, perfume, deodorant, or body powder the day of surgery. No jewelry (including any body piercings) or valuables the day of surgery, leave them at home. Please take a shower or bath the night before, or the morning of, surgery with an antibacterial soap. Wear comfortable, loose fitting clothing. - Jewelry must be removed prior to entering the operating room. Rings and piercings that are not removed may be cut off. - The hospital will not accept responsibility for valuables. - Please leave all valuables, including medications, at home the day of surgery. If you are going home after surgery, a licensed medical van driver must drive you home. - NO public transportation without another adult if you receive anesthesia. - We recommend that an adult stay with you for 24 hours following discharge. - We also recommend that you do not drive, make important decision, drink alcoholic beverages, or take any drugs that were not prescribed by your health care provider for at least 24 hours after your discharge time. Follow any additional instructions given to you from your surgeon. If you or anyone in your household have experienced Covid symptoms in the past week, please notify your surgeon or the nurse liaison at the phone number below for possible testing. Telephone instructions given to PT - JAMES RAMOS and asked if any additional questions and then verbalized understanding. Patient advised to call surgeon office or pre surgery nurse liaison [phone] if any additional questions.
--- NOTE | 2023-01-19 10:14 | PM.IMHP ---
H&P: HPI History of Present Illness Date/Time: 01/19/23 10:14 Chief Complaint: Irregular and heavy bleeding Narrative: Patient is a 32-year-old with a long history of menometrorrhagia and dysmenorrhea. She has tried IUD progesterone only and did not get sustained satisfactory results. She states she continues to have periods lasting 10-14 days and that is increased the longer she has had the IUD. She was also tried on Lo Loestrin and this did help the symptoms. But she wants definitive treatment she states when she does have a period. It is still long. She requests definitive treatment for the irregular bleeding. She does not want to try anything else. She has a concern about other hormonal options and has a concern about cancer. She has a long history of diffuse lower abdominal discomfort and also dysmenorrhea. No relief of the dysmenorrhea with the control pills. Pelvic ultrasound did not show any fibroids. She does have a history of ASCUS positive high-risk HPV her subsequent biopsies did not show any high-grade dysplasia. She had a recent endometrial biopsy which was normal. Review of Systems Review of Systems: All systems reviewed & are unremarkable except as noted in HPI and below Cardiovascular: Cardiovascular: Reports no additional cardiovascular complaints, Denies chest pain and Denies dyspnea Respiratory: Respiratory: Reports no additional respiratory complaints and Denies dyspnea Gastrointestinal: Gastrointestinal: Reports abdominal pain, Denies change in bowel habits, Denies diarrhea, Denies nausea and Denies vomiting Genitourinary: Genitourinary: Reports pelvic pain Musculoskeletal: Musculoskeletal: Reports back pain Integumentary/Breasts: Skin/Breast: Reports system reviewed and no additional complaints, except as docu Neurologic: Reports system reviewed and no additional complaints, except as documented PMFSH Past Medical History Medical History ASCUS with positive high risk HPV Blood in stool, justino Chronic GERD Dysfunctional uterine bleeding Epigastric pain History of acute gastritis History of chlamydia History of gonorrhea History of herpes simplex infection History of ovarian cyst History of pleurisy History of UTI Obesity Family History Family History Father Diabetes mellitus Hypertension Grandparent Diabetes mellitus Acute myocardial infarction Mother Hypertension Sibling Hypertension Social History Social History Smoking status: Never smoker Alcohol intake: never Substance use: never Substance use type: does not use Lack of Transportation: No Lack of Food: Never True Current Housing: I Have Housing Concerned About Future Housing: No Difficulty Paying Gas/Electric Bills: No Difficulty Paying for Meds: No Currently Unemployed: No Education: Bachelor's Degree Difficulty w/ Childcare or Family Care: No Living arrangements: with family Additional living arrangements comments: CHILDREN Occupation/Education: occupation Gender identity (if verbalized by the patient): Female Sexual Orientation (if Verbalized by the Patient): Straight or Heterosexual Spiritual care concerns: No Agree to blood products: Yes Meds Home Medications and Allergies Home Medications Medication Instructions Recorded Confirmed Type levonorgestrel 21 mcg/24 hours (8 1 device intrauterine ONCE 11/20/22 01/19/23 History yrs) 52 mg intrauterine device (Mirena) Allergies Allergy/AdvReac Type Severity Reaction Status Date / Time No Known Allergies Allergy Verified 01/19/23 08:15 Exam Const: Orientation/consciousness: oriented to person and oriented to place HENMT: Head: normal to inspection Eyes: General: appearance normal, both eyes and all related structures
[2023-01-22] VITALS (7 sets, daily range): BP systolic 103–150; BP diastolic 52–81; PULSE 86–112; RESP 16–20; TEMP 36.6–37.2; O2SAT 98–100
--- NOTE | 2023-01-22 11:17 | WPDANESEPPF ---
Anes - Initial Pre Proc Eval Procedure: Operation Date: 01/22/23 13:00 Proposed Procedures p Robotic Laparoscopic Vaginal Hysterectomy with Bilateral Salpingectomy, Possible Oophorectomy - Harjinder Solorio MD Date/Time: 01/22/23 11:17 Surgeon: Harjinder Solorio MD Pre Op Diagnosis: Menometrorrhagia Patient Data Age: 32 Gender: F Height: 1.6 m Weight: 113.5 kg Allergies Allergy/AdvReac Type Severity Reaction Status Date / Time No Known Allergies Allergy Verified 01/19/23 08:15 Home Medications Medication Instructions Recorded Confirmed Type levonorgestrel 21 mcg/24 hours (8 1 device intrauterine ONCE 11/20/22 01/19/23 History yrs) 52 mg intrauterine device (Mirena) Patient hx anesthesia problems: none Family hx anesthesia problems: none Results Review: All pre-operative results and documents have been reviewed as part of the pre-operative evaluation. [facility] Past Medical History Medical History ASCUS with positive high risk HPV Blood in stool, justino Chronic GERD Dysfunctional uterine bleeding Epigastric pain History of acute gastritis History of chlamydia History of gonorrhea History of herpes simplex infection History of ovarian cyst History of pleurisy History of UTI Obesity Family History Family History Father Diabetes mellitus Hypertension Grandparent Diabetes mellitus Acute myocardial infarction Mother Hypertension Sibling Hypertension Social History Social History Smoking status: Never smoker Alcohol intake: never Substance use: never Substance use type: does not use Lack of Transportation: No Lack of Food: Never True Current Housing: I Have Housing Concerned About Future Housing: No Difficulty Paying Gas/Electric Bills: No Difficulty Paying for Meds: No Currently Unemployed: No Education: Bachelor's Degree Difficulty w/ Childcare or Family Care: No Living arrangements: with family Additional living arrangements comments: CHILDREN Occupation/Education: occupation Gender identity (if verbalized by the patient): Female Sexual Orientation (if Verbalized by the Patient): Straight or Heterosexual Spiritual care concerns: No Agree to blood products: Yes Anes - Eval Final PreProcedure Day of Procedure 01/22/23 11:17 Patient weight: morbidly obese Heart: regular rate and rhythm Lungs: clear to auscultation Airway: Mallampati scale class II Neurological: alert and oriented Last oral intake: >/= 8 hours ASA classification: III Emergent: no Anesthetic plan: proceed Anesthesia type and monitoring: general ETT and standard monitoring Results Review: All pre-operative results and documents have been reviewed as part of the pre-operative evaluation. Informed Consent: The patient's anesthetic plan and its attendant risks and benefits were discussed with the patient/family/POA. Questions were solicited and answers provided to the satisfaction of the patient/family/POA.
[2023-01-22] MEDS: LACTATED RINGERS 1,000 ML 30 ML IV CONT ×2 (11:20→14:29)
[2023-01-22] MEDS: ACETAMINOPHEN 500 MG TABLET 1000 MG PO (11:32)
[2023-01-22] MEDS: KETOROLAC 15 MG/ML VIAL (*BKC) IV PUSH (11:33)
--- NOTE | 2023-01-22 11:59 | WPDHPUPDATE1 ---
History and Physical Update Update Date/Time: 01/22/23 11:59 History and Physical has been reviewed, including an updated exam of the patient. There are NO changes in the patient's condition. Risks, benefits, and alternatives have been discussed and questions answered. Patient agrees to proceed with procedure.
[2023-01-22] MEDS: ceFAZolin 2 GM/D5W 50 ML 2 GM/50 ML BAG IVPB (12:31)
[2023-01-22] MEDS: BUPivacaine HCL 0.5% 10 ML AMP 30 ML INFILTRATE (13:05)
--- NOTE | 2023-01-22 14:20 | PM.OP ---
Procedure Note - Brief Procedure Note - Brief Date of procedure: 01/22/23 Menometrorrhagia Post-op diagnosis: Same Procedure performed: Laparoscopic robotic assisted total vaginal hysterectomy with bilateral salpingectomy. Surgeon: Harjinder Solorio MD Anesthesia: GETA Findings: Normal uterus, engorged pelvic vessels, normal fallopian tubes and ovaries bilaterally. Estimated blood loss (mL): 25 Drains: No Packing: No Pathology: Yes (uterus with cervix and right and left fallopian tubes and ovaries) Complications: No immediate complications Condition: Stable Disposition: PACU
--- NOTE | 2023-01-22 14:33 | W.PM.PROC2 ---
Procedure Note - Detailed Date of Procedure 01/22/23 Pre-op Diagnosis Menometrorrhagia Post-op Diagnosis Same Procedure Performed Laparoscopic robotic assisted total vaginal hysterectomy with bilateral salpingectomy Surgeon Harjinder Solorio MD Finished Stock Inspector Dave Anesthesia General Indications Menorrhagia, dysmenorrhea. Findings Normal uterus, slightly enlarged, normal ovaries and fallopian tubes bilaterally. Description of Procedure After informed consent was obtained she was taken to the operating room and general endotracheal anesthesia was administered. She was placed in low lithotomy position. An exam under anesthesia was performed. Uterus mildly enlarged retroverted, no adnexal masses palpated. She was and prepped and draped in sterile fashion. Jackson catheter placed in bladder. Attention was turned to the vagina speculum was inserted. Single-tooth tenaculum placed on anterior lip of the cervix the uterus sounded to 9 cm. The cervix was dilated to a 8 Garcia dilator. A size 8 uterine manipulator was inserted and secured. A size 3.0 colp cup was secured in the vagina. Attention was turned to the abdomen. 2 cm above the umbilicus 0.25% Marcaine was injected subcutaneously. A horizontal incision was made. A Veress needle was inserted into the abdomen and confirmation into the abdomen obtained with normal peritoneal pressures. A Pneumoperitoneum of 15 mm per mercury was obtained. She was placed in Trendelenburg position. No abdominal or pelvic adhesions noted. A small incision was made approximately 10 cm lateral to the port on the left side of the port. A size 8mm robotic port was inserted under laparoscopic visualization into the abdomen on the left side. Attention was turned to the right side of the abdomen and approximately 10 cm from the umbilicus 0.25% Marcaine was injected subcutaneously an incision was made and then 8 mm robotic port was inserted under laparoscopic visualization. Superior and medial to this an incision was made and the financial assistant port was inserted under laparoscopic visualization. At the surgery console attention was turned to the right round ligament. The round ligament was ligated with the vessel sealer. The anterior leaf of the broad ligament was dissected anteriorly and the vesicouterine peritoneum was dissected off of the cervix on the right side. Attention was then turned to the right fallopian tube which was ligated from the mesosalpinx using the vessel sealer. The right ovarian ligament was ligated with the vessel sealer. The a posterior leaf of the broad ligament was further dissected. The uterine vessels on the right were skeletonized. The ascending uterine vessels on the right were cauterized. The uterine vessels were ligated. Attention was turned to the left round ligament which was ligated and the anterior leaf of the broad ligament was dissected anteriorly. The rest of the vesicouterine peritoneum was dissected off of the uterus. Once the bladder was dissected below the colp cup then the posterior leaf of the broad ligament was further dissected. The left fallopian tube was ligated from the mesosalpinx with the vessel sealer. The ovarian ligament was ligated. The ascending uterine vessels were ligated. The uterine arteries were skeletonized. The uterine arteries were ligated. The cardinal ligaments were ligated. This was done on both sides. An incision was made anterior colpotomy incision was made and this was carried around until the cervix was removed from the vagina. The uterus and cervix were removed through the vagina. The vaginal cuff was closed in a running fashion with 0 V lock suture. Hemostasis was noted. The pelvis was irrigated. Hemostasis noted. Hemoderm was applied in the pelvis. The patient was taken out of Trendelenburg position. The pneumoperitoneum was released and the ports were removed. The fascial stitch at the supraumbilical incision was approximated with O vicr
[2023-01-22] MEDS: fentaNYL CITRATE INJ (*CRX) 100 MCG/2 ML VIAL 25 MCG IV PUSH ×4 (14:36→15:14)
[2023-01-22] MEDS: ONDANSETRON INJ 4 MG/2 ML VIAL IV PUSH (15:01)
--- NOTE | 2023-01-22 15:33 | PC.NURSE ---
This patient, Jaki Carlin, was received from PACU via bed on 01/22/23 at 1533. Patient/family oriented to unit policies and routines.
[2023-01-22] MEDS: DEXTROSE 5%/0.45% SOD CHL 1,000 ML 125 ML IV CONT (17:32)
[2023-01-22] MEDS: KETOROLAC 30 MG/ML VIAL (*BKC) IV PUSH (17:33)
[2023-01-22] MEDS: SENNA/DOCUSATE SODIUM TABLET 2 TAB PO (20:00)
[2023-01-22] MEDS: HYDROcodone/acetaminophen (*CRX) 5-325 MG TABLET 1 TAB PO (20:00)
[2023-01-23 00:40] VITALS: BP 138/82; PULSE 105; RESP 18; TEMP 36.2
[2023-01-23] MEDS: IBUPROFEN 600 MG TABLET PO ×3 (00:41→16:44)
[2023-01-23 07:00] VITALS: BP 120/71; PULSE 94; RESP 18; TEMP 36.6; O2SAT 98
--- NOTE | 2023-01-23 07:12 | PM.GYNPNOP ---
ELECTRONIC SCALE SUBASSEMBLER - A/P Assessment and plan (1) Status post hysterectomy: Code(s): Z90.710 - Acquired absence of both cervix and uterus Status: Acute Assessment and Plan: POD1. Doing well. Encourage ambulation. Anticipate discharge today. Postoperative Procedures: Procedures Operation Date: 01/22/23 13:00 Actual Procedure Side Surgeon p Robotic Laparoscopic Vaginal Hysterectomy with Bilateral Salpingectomy Bilateral Harjinder Solorio MD Time Spent With Patient Time: Total time spent is greater than 50% in coordination of care (as documented) at patient's floor/unit and/or counseling patient: Time with patient: less than 15 minutes ELECTRONIC SCALE SUBASSEMBLER- PN:Subj Post-Op Subjective Date/time seen: 01/23/23 07:12 Interval history: She has gas pain, no flatus, michelle regular, has ambulated to restroom. No leg pain or chest pain. Has adequate pain control with meds. Binder helps. Exam Const: General: no acute distress Resp: Effort & Inspection: normal respiratory effort Auscultation: clear to auscultation bilaterally Cardio: Rate: regular rate Rhythm: regular rhythm GI: Inspection: normal to inspection Other: incisions intact no drainage, bowel sounds present, hypoactive, appropriate tenderness Extrem: General: normal to inspection and no calf tenderness ELECTRONIC SCALE SUBASSEMBLER - PN: Obj Data Vital Signs Vital Signs: Vital Signs - 24 hr 01/22/23 11:20 01/22/23 14:29 01/22/23 14:45 Temperature 98.4 F 98.0 F Pulse Rate 86 105 H 100 Respiratory Rate 18 16 20 Blood Pressure 150/81 H 108/59 L 103/52 L Pulse Oximetry 100 100 100 Oxygen Delivery Room Air Simple Face Mask Simple Face Mask Oxygen Flow Rate 6 6 01/22/23 15:00 01/22/23 15:15 01/22/23 15:45 Temperature 97.9 F Pulse Rate 96 93 93 Respiratory Rate 17 17 18 Blood Pressure 111/66 120/78 120/75 Pulse Oximetry 100 100 98 Oxygen Delivery Room Air Room Air Oxygen Flow Rate 01/22/23 20:00 01/23/23 00:40 Temperature 99.0 F 97.2 F L Pulse Rate 112 H 105 H Respiratory Rate 18 18 Blood Pressure 129/58 L 138/82 Pulse Oximetry Oxygen Delivery Oxygen Flow Rate Intake/Output Intake/Output: Intake & Output 01/20/23 01/21/23 01/22/23 09/23/23 23:59 23:59 23:59 23:59 Intake Total 1175 Output Total 400 Balance 775 Meds/Results Medications: Active Medications Generic Name Dose Route Start Last Admin Trade Name Freq PRN Reason Stop Dose Admin Hydrocodone Bitart/Acetaminophen 1 tab 01/22/23 14:10 01/22/23 20:00 Hydrocodone/Acetaminophen (*Crx) 5-325 Mg Tablet PO 1 tab Q3H PRN Administration Pain Rated 5 or Less Hydrocodone Bitart/Acetaminophen 1 tab 01/22/23 14:10 Hydrocodone/Acetaminophen (*Crx) 10-325 Mg Tablet PO Q3H PRN Pain Rated 6 or Greater Fentanyl Citrate 25 mcg 01/22/23 11:15 01/22/23 15:14 Fentanyl Citrate Inj (*Crx) 100 Mcg/2 Ml Vial IV PUSH 25 mcg Q2M PRN Administration Pain Ibuprofen 600 mg 01/22/23 14:10 01/23/23 00:41 Ibuprofen 600 Mg Tablet PO 600 mg Q6H PRN Administration Cramping Ketorolac Tromethamine 30 mg 01/22/23 14:10 01/22/23 17:33 Ketorolac 30 Mg/Ml Vial (*Bkc) IV PUSH 01/27/23 14:09 30 mg Q6H PRN Administration Pain Rated 4-6 Morphine Sulfate 4 mg 01/22/23 14:10 Morphine Sulfate (*Crx) 4 Mg/Ml Inj IV PUSH Q4H PRN Severe breakthrough pain Naloxone HCl 0.1 mg 01/22/23 14:10 Naloxone Hcl 0.4 Mg/Ml Vial IV PUSH Q2M PRN Respiratory rate less than 10 Ondansetron HCl 4 mg 01/22/23 11:15 01/22/23 15:01 Ondansetron Inj 4 Mg/2 Ml Vial IV PUSH 4 mg ONCE PRN Administration Nausea Ondansetron HCl 4 mg 01/22/23 14:10 Ondansetron Inj 4 Mg/2 Ml Vial IV PUSH Q6H PRN Nausea And Vomiting Oxycodone HCl 5 mg 01/22/23 11:15 Oxycodone Hcl (*Crx) 5 Mg Tab Ir PO ONCE PRN Pain Senna/Docusate Sodium 2 tab 01/22/23 21:00 01/22/23 20:00 Senna/Docusate Sodi
[2023-01-23] MEDS: HYDROcodone/acetaminophen (*CRX) 5-325 MG TABLET 1 TAB PO (07:33)
[2023-01-23] MEDS: HYDROcodone/acetaminophen (*CRX) 10-325 MG TABLET 1 TAB PO ×3 (10:04→18:51)
[2023-01-23] MEDS: SIMETHICONE 80 MG TAB.CHEW PO ×3 (10:04→18:51)
[2023-01-23] MEDS: PHENOL/SOD PHENO SPRAY CHERRY (*BKC) 1 SPRAY MUCOUS MEM (10:05)
--- NOTE | 2023-01-23 13:05 | WPDANESPN ---
Anes - Prog Note Post-Op Date/Time: 01/23/23 13:05 Cardiovascular status: normal Respiratory status: normal Airway patency: baseline Mental status: baseline Post-Op hydration status: normal Vital Signs: Last Vital Signs Temp 97.8 F 01/23/23 07:00 Pulse 94 01/23/23 07:00 Resp 18 01/23/23 07:00 BP 120/71 01/23/23 07:00 Pulse Ox 98 01/23/23 07:00 O2 Del Method Room Air 01/22/23 15:15 O2 Flow Rate 6 01/22/23 14:45 Pain Score (VAS): 0 I/O: Intake & Output 01/22/23 01/23/23 01/23/23 23:59 07:59 15:59 Intake Total 725 500 Output Total 400 Balance 325 500 Post-procedural complaints: none Patient Feedback: Patient satisfied with anesthetic care.
[2023-01-23 18:55] VITALS: BP 136/85; PULSE 93; RESP 18; TEMP 36.4; O2SAT 99
== END 2023-01-23 20:00 | disposition home or self-care (01) ==
LOC: ANHSURGERY 10:42 → ANHOB2 15:56
PROVIDERS: PCP Family Medicine; Visit Provider Obstetrics & Gynecology
PROC: (CPT 58552; principal; 2023-01-22 13:00)
DX: N92.1 Excessive and frequent menstruation with irregular cycle (principal); N72 Inflammatory disease of cervix uteri; N88.8 Other specified noninflammatory disorders of cervix uteri; D25.1 Intramural leiomyoma of uterus; D25.2 Subserosal leiomyoma of uterus; N94.6 Dysmenorrhea, unspecified; R87.810 Cervical high risk human papillomavirus (HPV) DNA test positive; E66.01 Morbid (severe) obesity due to excess calories; Z68.41 Body mass index [BMI] 40.0-44.9, adult
CPT/HCPCS: 58552; S2900; 88307; 99199; A9270; J0690; J1885; J2250; J2405; J2704; J3010; J7030; J7120

== ENCOUNTER 2023-05-03 10:09 | Emergency (ER) | payer OTHER, SELFPAY ==
--- NOTE | ~2023-05-03 | XR_ITS ---
EXAMINATION: XR chest 2V DATE: 05/03/2023 10:54 INDICATION: Cough and shortness of breath. Wheezing. TECHNIQUE: Frontal and lateral views of the chest were obtained. COMPARISON: Chest 2 views 10/11/2019, CT abdomen and pelvis 10/12/2020 FINDINGS: There is no pneumonia, pleural effusion, or pneumothorax. The heart size is normal. IMPRESSION: 1. No acute cardiopulmonary disease. Reviewed, dictated and finalized at location A. NING MACHINE FEEDER
[2023-05-03 10:19] VITALS: BP 146/92; PULSE 96; RESP 20; TEMP 36.5; O2SAT 98
--- NOTE | 2023-05-03 10:30 | ED.URI ---
HPI - URI/Sore Throat General Chief Complaint: Upper Respiratory Infection Stated Complaint: wheezing, SHETH, body aches Time Seen by Provider: 05/03/23 10:13 Source: patient Mode of arrival: ambulatory Limitations: no limitations History of Present Illness HPI Narrative: Jaki is a 32-year-old female patient presenting to the ER today with complaints of headache, cough, body aches, wheezing, shortness of breath, and chest discomfort. She reports symptoms started on the June 01. States highest fever was 101. Denies sore throat. MD elicited complaint: fever, cough, rhinorrhea, nasal congestion and other (Wheezing) Related Data Allergies Allergy/AdvReac Type Severity Reaction Status Date / Time No Known Allergies Allergy Verified 05/03/23 10:35 Review of Systems Review of Systems: Pertinent positives per HPI. Patient denies any rash, headache, visual changes, dizziness, palpitations, nausea, vomiting, diarrhea, constipation, abdominal pain, or any urinary issues. PMFSH Past Medical History Medical History Blood in stool, justino Chronic GERD Epigastric pain History of acute gastritis History of herpes simplex infection History of pleurisy Obesity Surgical History Surgical History History of vaginal hysterectomy (~01/22/23) RA Vaginal hyst with bilateral salpingectomy. Benign path/fibroids. For: Menometrorrhagia. Dr Solorio Family History Family History Father Diabetes mellitus Hypertension Grandparent Diabetes mellitus Acute myocardial infarction Mother Hypertension Sibling Hypertension Social History Social History Smoking status: Never smoker Alcohol intake: never Substance use: never Substance use type: does not use Lack of Transportation: No Lack of Food: Never True Current Housing: I Have Housing Concerned About Future Housing: No Difficulty Paying Gas/Electric Bills: No Difficulty Paying for Meds: No Currently Unemployed: No Education: Bachelor's Degree Difficulty w/ Childcare or Family Care: No Living arrangements: with family Additional living arrangements comments: CHILDREN Occupation/Education: occupation Gender identity (if verbalized by the patient): Female Sexual Orientation (if Verbalized by the Patient): Straight or Heterosexual Spiritual care concerns: No Agree to blood products: Yes Comments At the time of my signature, I reviewed and agree with the nursing past medical, surgical, social, and family history. There is no relevant family history pertinent to the patient complaint. Exam Narrative: General: Well-developed, obese, in no apparent distress Head: Normocephalic, atraumatic Eyes: Pupils equally round and reactive to light bilaterally, EOM intact, sclera and conjunctive clear, no discharge, lids normal Ears: TMs intact and clear, ear canals clear, no drainage, grossly hearing normal. Nose: Nares patent, clear nasal discharge, no inflammation, no sinus tenderness. Mouth: Oral pharynx without lesions or masses, good dentition, MMM. Neck: Supple, trachea midline, no enlargement of anterior or posterior cervical nodes, no thyroid masses or goiter palpable. Cardio: Regular rate and rhythm, s1 and s2 normal, no murmur appreciated. Resp: Clear to auscultation bilaterally, no rhonchi, rales, wheezing or rubs Course Course Emergency Course: Portions of this record may have been created with voice recognition software. Vital Signs Vital signs: Vital Signs Temperature 36.5 C 05/03/23 10:19 Pulse Rate 96 05/03/23 10:19 Respiratory Rate 20 05/03/23 10:19 Blood Pressure 146/92 H 05/03/23 10:19 Pulse Oximetry 98 05/03/23 10:19 Oxygen Delivery Room Air 05/03/23 10:19 Temperatu
[2023-05-03 10:33] VITALS: O2SAT 100
--- NOTE | 2023-05-03 10:39 | ECG_ITS ---
Measurements Intervals [place] Rate: 86 P: 55 CT: 177 QRS: 61 QRSD: 93 T: 32 QT: 351 QTc: 421 Interpretive Statements SINUS RHYTHM NONSPECIFIC T-WAVE ABNORMALITY- DIFFUSE LEADS BASELINE ARTIFACT- I, II, AVR, AVL BORDERLINE ECG COMPARED TO ECG 10/12/2020 01:43:04 T-WAVE ABNORMALITY NOW PRESENT Electronically Signed On 05-03-2023 14:26:45 PRACTICE LEAD by Abilio Bar D.O.
[2023-05-03 11:21] LABS: Influenza A QL RT-PCR Positive (Negative); Influenza B QL RT-PCR Negative (Negative); RSV RNA, RT-PCR Negative (Negative); SARS-CoV-2 RNA PCR Negative (Negative)
[2023-05-03 11:26] VITALS: BP 145/80; PULSE 79; RESP 19; TEMP 37.2; O2SAT 99
[2023-05-03 11:46] VITALS: BP 143/77; PULSE 89; RESP 17; O2SAT 100
== END 2023-05-03 11:48 | disposition home or self-care (01) ==
PROVIDERS: Emergency Provider Nurse Practitioner Family; PCP Family Medicine
DX: J10.1 Influenza due to other identified influenza virus with other respiratory manifestations (principal); Z20.822 Contact with and (suspected) exposure to COVID-19; K21.9 Gastro-esophageal reflux disease without esophagitis; E66.9 Obesity, unspecified; Z68.41 Body mass index [BMI] 40.0-44.9, adult; Z90.710 Acquired absence of both cervix and uterus; R94.31 Abnormal electrocardiogram [ECG] [EKG]
CPT/HCPCS: 71046; 87637; 93005; 99283

== ENCOUNTER 2024-03-21 10:19 | Emergency (ER) | payer BC, SELFPAY ==
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
[2024-03-21 10:35] VITALS: BP 132/90; PULSE 80; RESP 20; TEMP 36.2; O2SAT 100
[2024-03-21 11:06] VITALS: BP 109/67; PULSE 81; RESP 17; O2SAT 96
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
--- NOTE | 2024-03-21 12:24 | ECG_ITS ---
Test Date: 2024-03-21 12:37:03 Measurements Intervals [place] Rate: 78 P: 23 AR: 203 QRS: 58 QRSD: 89 T: 55 QT: 385 QTc: 441 Interpretive Statements SINUS RHYTHM NONSPECIFIC T-WAVE ABNORMALITY- HIGH LATERAL LEADS BASELINE ARTIFACT- I, II, III, AVR, AVL, AVF BORDERLINE ECG No previous ECG available for comparison Electronically Signed On 03-21-2024 12:49:19 TIME CLOCK MECHANIC by Abilio Bar D.O.
[2024-03-21 12:52] VITALS: BP 121/81; PULSE 77; RESP 16; O2SAT 100
[2024-03-21] MEDS: METOCLOPRAMIDE HCL INJ 10 MG/2 ML VIAL IV PUSH (12:52)
[2024-03-21 13:11] VITALS: RESP 16
[2024-03-21 13:13] VITALS: BP 115/76; PULSE 74; PULSE 75; RESP 16; O2SAT 98
--- NOTE | 2024-03-21 13:14 | PC.NURSE ---
1224: Pt c/o chest pain. Dr. Ly informed & EKG ordered.
[2024-03-21 13:52] VITALS: BP 115/74; PULSE 82; RESP 18; O2SAT 97
== END 2024-03-21 13:55 | disposition home or self-care (01) ==
PROVIDERS: Emergency Provider Emergency Medicine; PCP Family Medicine
DX: S06.0XAA Concussion with loss of consciousness status unknown, initial encounter (principal); K21.9 Gastro-esophageal reflux disease without esophagitis; E66.9 Obesity, unspecified; Z68.42 Body mass index [BMI] 45.0-49.9, adult; Z90.710 Acquired absence of both cervix and uterus; Z90.79 Acquired absence of other genital organ(s); R94.31 Abnormal electrocardiogram [ECG] [EKG]; V49.9XXA Car occupant (driver) (passenger) injured in unspecified traffic accident, initial encounter
CPT/HCPCS: 70450; 93005; 96374; 99284; J2765

== ENCOUNTER 2024-05-29 13:30 | Outpatient (RCR) | payer OTHER, BC, SELFPAY ==
--- NOTE | 2024-04-12 09:34 | OPREHPOC ---
Outpatient Therapy Plan of Care This is a Multidisciplinary Plan of Care that may contain components documented by all disciplines (PT, OT, and ST.) PT Problem 1 PT Problem #1 Knowledge Deficit PT Goal 1 Goal / Goal Update *indep with HEP Target Visit 10 PT Problem 2 PT Problem #2 Pain PT Goal 1 Goal / Goal Update * decrease back pain to 7/10 at worst * self assessment Oswestry rating of 30% limitation in activity level Target Visit 10 PT Goal 2 Goal / Goal Update * radicular pain to L LE to mid thigh at worst Target Visit 10 PT Problem 3 PT Problem #3 Impaired Functional Mobility PT Goal 1 Goal / Goal Update * 2 minute walking test distance of 350' Target Visit 10 PT Goal 2 Goal / Goal Update * pt report activity tolerance of standing/walking of 2 hours with home tasks Target Visit 10 PT Problem 4 PT Problem #4 Impaired Strength PT Goal 1 Goal / Goal Update * increase LE and trunk strength to improve mobility: perform 45 minutes of aquatic exercises Target Visit 10 PT Goal 2 Goal / Goal Update * pt perform 20 reps of mat strengthening exercises R and L Target Visit 10
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
--- NOTE | 2024-05-25 11:31 | PCPTNOTE ---
Pt's time had changed due to scheduling conflict and pt was not informed. Therapist offered to still see pt when she could get here and pt originally agreed. Pt called back 10 min later and canceled.
--- NOTE | 2024-05-29 14:23 | PTOPDC ---
Assessment and note entered by Obdulia Motta, PT Assessment Status Discharge ICD-10 Condition Codes (PT) Cervicalgia M54.2,Pain in low back M54.50 Onset Mar 17, 2024 Subjective Information back is better, no longer constant and no longer crippling me with anything; the therapy has helped my back; doing the exercises and doing more at home; am walking about 30 minutes for fitness and doing OK; moving around better; at work, returned to 3 days/week for 9 hours and doing OK with it; now is able to sleep through the night with medication; just starting concussion therapy-- in [facility]; return to concussion Jun 22; have a membership to a fitness center that has a pool, going to continue with them; Reported Pain Level Pain Score Self Report Additional Pain Score Comments pain range in the past week for low back 0-2/10: center of low back- feels like a knot; no longer have in pain in legs; reports activity level with in home tasks: 1 & 1/2 hour Assessment PT Clinical Summary Jaki has received 9 PT sessions for low back pain. She continues to stutter and slight word finding problems with conversation. Compared to the initial evaluation: pain rating from 5-10/10 to 0-2/10; self assessment Oswestry rating from 42% to 8% limitation in activity level reported activity tolerance with standing/ walking home tasks from 1 hour to 1 & 1/2 hours; 2 minute walking test distance from 280' to 490'; increase strength of trunk and hips; education completed for HEP for land and water exercises, posture and body mechanics. The goals were partially met. Discharge PT. She is to continue with her HEP for her back. Reports she is going for concussion therapy in [facility], that includes treatment for her neck and headaches/ migraines. Plan of Care PT Services Indicated No
== END 2024-05-29 15:07 | disposition home or self-care (01) ==
LOC: ANHPT 13:30
PROVIDERS: PCP Family Medicine; Visit Provider Registered Nurse
DX: M54.50 Low back pain, unspecified (principal); M54.2 Cervicalgia
CPT/HCPCS: 97110; 97113; 97140; 97162; 97530

== ENCOUNTER 2024-06-29 08:46 | Outpatient (RCR) | payer BC, SELFPAY ==
[2024-06-29 09:28] VITALS: BMI 47.8
== END 2024-09-27 23:59 | disposition home or self-care (01) ==
LOC: ANHDMC 08:46
PROVIDERS: Visit Provider Nurse Practitioner Obstetrics & Gynecology
DX: E66.9 Obesity, unspecified (principal); Z68.41 Body mass index [BMI] 40.0-44.9, adult; Z71.89 Other specified counseling
CPT/HCPCS: 97802